=== PATIENT | female | born 2000 | race Native Hawaiian/Other Pacific Islander ===

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

== ENCOUNTER 2021-06-10 20:31 | Emergency (ER) | payer SELFPAY | END 2021-06-10 20:36 | disposition left against medical advice (07) | LOC: ED 20:31 | DX: J45.909 Unspecified asthma, uncomplicated (principal); Z53.21 Procedure and treatment not carried out due to patient leaving prior to being seen by health care provider ==

== ENCOUNTER 2021-12-25 01:44 | Emergency (ER) | payer SELFPAY ==
[2021-12-25] MEDS ORDERED: diphenhydrAMINE 25 MG/10 ML ORAL LIQUID PO ONE (05:22)
[2021-12-25] MEDS ORDERED: ALUM-MAG HYDROXIDE-SIMETHICONE 200-200-20MG/5ML ORAL LIQD 30 ML PO STA (05:22)
[2021-12-25] MEDS ORDERED: ONDANSETRON 4 MG ODT TAB PO ONE (05:23)
[2021-12-25 05:37] LABS: Hematocrit 36.6 % (30.3-42.9); Mean Corpuscular HGB Conc 35 % (30-34); Mean Corpuscular Volume 83 fl (79-97); Platelet Count 304 K/mm3 (140-440); Red Cell Distribution Width 13.6 % (13.2-15.2)
[2021-12-25 05:58] LABS: Alanine Aminotransferase 10 units/L (7-56); Albumin 4.4 g/dL (3.9-5); Blood Urea Nitrogen 9 mg/dL (7-17); Calcium 8.9 mg/dL (8.4-10.2); Hemolysis Index 10
[2021-12-25 06:02] LABS: BUN/Creatinine Ratio 15
[2021-12-25] MEDS ORDERED: HYOSCYAMINE SUBL 0.125 MG TAB SL ONE (06:15)
--- NOTE | 2021-12-25 06:15 | Emergency Department Report ---
ED Abdominal Pain HPI - General Chief Complaint: Abdominal Pain Stated Complaint: ABDOMINAL PAIN AND NAUSEA Time Seen by Provider: 12/25/21 05:59 Source: patient Mode of arrival: Ambulatory Limitations: No Limitations - History of Present Illness Initial Comments: Patient presents with a 2 to 3-day history of upper abdominal pain. It started and Monday and has progressively worsened to today. Pain is in the epigastric area. It does not radiate or migrate. She states it is sharp, burning, and cramping. She states that it seems to wax and wane. She has not noticed any aggravating or alleviating factors. She can sometimes use a heating pad and help ease it, but it never goes away with a heating pad. She came here for evaluation and treatment. There is no history of recent travel or trauma. She has had nausea without vomiting or diarrhea. There is no melena. Patient denies dysuria or frequency. She has no vaginal bleeding or discharge. She is never had symptoms of this nature before. Patient has not taken any medication for this as of yet. Severity scale (0 -10): 10 - Related Data Previous Rx's Medication Instructions Recorded Last Taken Type Albuterol Sulfate [Ventolin HFA] 2 puff IH Q4H PRN #1 hfa.aer.ad 12/08/14 Unknown Rx ALBUTEROL NEB's [Proventil 0.083% 2.5 mg IH Q6H PRN #75 ml 06/01/20 Unknown Rx NEBS] Albuterol Mdi (or & Nicu Only) 2 puff IH QID PRN #1 inhalation 06/01/20 Unknown Rx [ProAir HFA Inhaler] Ondansetron [Zofran ODT TAB] 8 mg PO Q8HR PRN #20 tab.rapdis 12/25/21 Unknown Rx Sucralfate [Carafate] 1 gm PO ACHS #120 tablet 12/25/21 Unknown Rx Allergies Allergy/AdvReac Type Severity Reaction Status Date / Time No Known Allergies Allergy Unverified 12/08/14 08:12 ED Review of Systems ROS: Stated complaint: ABDOMINAL PAIN AND NAUSEA Other details as noted in HPI Comment: All other systems reviewed and negative Constitutional: denies: fever Eyes: denies: vision change ENT: denies: throat pain Respiratory: denies: cough Cardiovascular: denies: chest pain Endocrine: denies: unexplained weight loss Gastrointestinal: as per HPI Genitourinary: denies: dysuria Musculoskeletal: denies: myalgia Skin: denies: rash Neurological: denies: headache Hematological/Lymphatic: denies: easy bruising ED Past Medical Hx - Past Medical History Hx Asthma: Yes - Family History Family history: no significant - Social History Smoking Status: Never Smoker Substance Use Type: None - Medications Home Medications: Home Medications Medication Instructions Recorded Confirmed Last Taken Type Albuterol Sulfate [Ventolin HFA] 2 puff IH Q4H PRN #1 hfa.aer.ad 12/08/14 Unknown Rx ALBUTEROL NEB's [Proventil 0.083% 2.5 mg IH Q6H PRN #75 ml 06/01/20 Unknown Rx NEBS] Albuterol Mdi (or & Nicu Only) 2 puff IH QID PRN #1 inhalation 06/01/20 Unknown Rx [ProAir HFA Inhaler] Ondansetron [Zofran ODT TAB] 8 mg PO Q8HR PRN #20 tab.rapdis 12/25/21 Unknown Rx Sucralfate [Carafate] 1 gm PO ACHS #120 tablet 12/25/21 Unknown Rx ED Physical Exam - General Limitations: No Limitations, Other (Pulse ox noted and normal) General appearance: alert, in no apparent distress - Head Head exam: Present: atraumatic, normocephalic - Eye Eye exam: Present: normal appearance, PERRL, EOMI. Absent: scleral icterus - ENT ENT exam: Present: normal external ear exam - Neck Neck exam: Present: normal inspection. Absent: meningismus - Respiratory Respiratory exam: Present: normal lung sounds bilaterally. Absent: respiratory distress - Cardiovascular Cardiovascular Exam: Present: regular rate, normal rhythm - GI/Abdominal GI/Abdominal exam: Present: soft, tenderness (Mild epigastric). Absent: distended, guarding, rebound - Back Exam Back exam: Absent: CVA tenderness (R), CVA tenderness (L) - Neurological Exam Neurological exam: Present: alert, oriented X3, CN II-XII intact, normal gait. Absent: motor sensory deficit - Psychiatric Psychiatric exam: Present: normal affect, normal mood - Skin Skin exam: Present: warm, dry ED Course Vital Signs 12/25/21 02:17 Temperature 98.1 F Pulse Rate 76 Respiratory 16 Rate Blood Pressure 111/75 [Right] O2 Sat by Pulse 99 Oximetry - Reevaluation(s) Reevaluation #1: 12/25/21 06:14 Labs have been ordered. Old records reviewed. Medications ordered. Reevaluation #2: 12/25/21 07:30 Labs have been noted. Patient was discharged. Lower abdomen is soft and nontender. There is no epigastric tenderness at the time of discharge. ED Medical Decision Making - Lab Data Result diagrams: 12/25/21 05:20 12/25/21 05:20 - Medical Decision Making Patient presents with upper abdominal pain of unclear etiology. She certainly does not have evidence of acute hepatitis or pancreatitis clinically. She is not so ectopic is excluded. Patient has no dysuria or frequency. I am not concerned for urinary tract infection. There is no tenderness over McBurney's point that would suggest appendicitis. She does not have tenderness in the right upper quadrant that would suggest biliary disease. She certainly could have gastritis or an ulcer. This could also just be nonspecific abdominal pain. Regardless, she was referred for outpatient evaluation and follow-up. Critical Care Time: No Critical care attestation.: If time is entered above; I have spent that time in minutes in the direct care of this critically ill patient, excluding procedure time. ED Disposition Clinical Impression: Acute epigastric pain, Nausea Disposition: 01 HOME / SELF CARE / HOMELESS Is pt being admited?: No Condition: Stable Instructions: Nausea, Adult, Abdominal Pain, Adult, Pain Without a Known Cause, Abdominal Pain (ED) Additional Instructions: Have a bland diet. Drink plenty water. Return for problems. Follow-up with your regular doctor or the referral doctor for recheck. Prescriptions: Sucralfate [Carafate] 1 gm PO ACHS #120 tablet Ondansetron [Zofran ODT TAB] 8 mg PO Q8HR PRN #20 tab.rapdis PRN Reason: Nausea
[2021-12-25 06:53] LABS: Basophils % (Manual) 0 % (0.0-1.8); Total Cells Counted 100
[2021-12-25 06:54] LABS: Anisocytosis 1+; Platelet Estimate Consistent w Auto
[2021-12-25 07:44] VITALS: BP 103/65
== END 2021-12-25 07:44 | disposition home or self-care (01) ==
LOC: ED 01:44
DX: R10.13 Epigastric pain (principal); R11.0 Nausea; R10.10 Upper abdominal pain, unspecified; J45.909 Unspecified asthma, uncomplicated; Z79.899 Other long term (current) drug therapy
CPT/HCPCS: 36415; 80053; 84703; 85007; 85025; 99283; Q0163; J3490; Q0162